=== PATIENT | female | born 1970 | race Caucasian/White ===

== ENCOUNTER 2018-03-20 18:53 | Emergency (ER) | payer SELFPAY ==
[2018-03-20 19:19] VITALS: BMI 26.4
[2018-03-20 19:21] VITALS: TEMP 98.6
--- NOTE | 2018-03-20 20:02 | ED PDOC ---
Arrival/HPI - General Chief Complaint: Abdominal Pain Time Seen by Provider: 03/20/18 19:29 Historian: Patient - History of Present Illness Narrative History of Present Illness (Text): 47 year old female with PMH of PCOS, ovarian cyts, presents with left adnexal and right lower back pain for 6 months duration. patient states the pain is a 6/ 10 and worse after sexual intercourse and while lying down. Patient denies any vaginal, pain with urination, bleeding, ever, chills, chest pain, shortness of breath, or any other complaints at this time. 03/20/18 19:59 Time/Duration: > month Quality: Cramping Severity Level: 6 Past Medical History - Provider Review Nursing Documentation Reviewed: Yes - Infectious Disease Hx of Infectious Diseases: None - Reproductive Menopause: Yes - Cardiac Hx Cardiac Disorders: Yes Other/Comment: Congenital valve regurgitation - Pulmonary Hx Respiratory Disorders: No - Neurological Hx Neurological Disorder: Yes Hx Vertigo: Yes - HEENT Hx HEENT Disorder: No - Renal Hx Renal Disorder: No - Endocrine/Metabolic Hx Endocrine Disorders: No - Hematological/Oncological Hx Blood Disorders: No - Integumentary Hx Dermatological Disorder: No - Musculoskeletal/Rheumatological Hx Musculoskeletal Disorders: No - Gastrointestinal Hx Gastrointestinal Disorders: No - Genitourinary/Gynecological Hx Genitourinary Disorders: No Other/Comment: Endometriosis and PCOS - Psychiatric Hx Psychophysiologic Disorder: No Hx Substance Use: No - Anesthesia Hx Anesthesia: No Family/Social History Family/Social History: No Known Family HX Smoking Status: Never Smoked Hx Alcohol Use: No Hx Substance Use: No Allergies/Home Meds Allergies/Adverse Reactions: Allergies No Known Allergies Allergy (Verified 03/20/18 19:19) Review of Systems - Review of Systems Constitutional: Normal Eyes: Normal ENT: Normal Respiratory: Normal Cardiovascular: Normal Gastrointestinal: Abdominal Pain. absent: Diarrhea Genitourinary Female: Other (pain after sexual intercourse ). absent: Dysuria, Frequency, Hematuria, Urine Output Changes, Vaginal Bleeding, Vaginal Discharge Musculoskeletal: Back Pain Skin: Normal Neurological: Normal Endocrine: Normal Physical Exam Vital Signs Temp Pulse Resp BP Pulse Ox 03/20/18 23:48 69 18 117/72 100 03/20/18 19:20 98.6 F 74 16 104/64 98 Temperature: Afebrile Blood Pressure: Normal Pulse: Regular Respiratory Rate: Normal Appearance: Positive for: Well-Appearing, Non-Toxic, Comfortable Pain Distress: Mild Mental Status: Positive for: Alert and Oriented X 3 - Systems Exam Head: Present: Atraumatic, Normocephalic Pupils: Present: PERRL Extroacular Muscles: Present: EOMI Conjunctiva: Present: Normal Mouth: Present: Moist Mucous Membranes Neck: Present: Normal Range of Motion Respiratory/Chest: Present: Clear to Auscultation Cardiovascular: Present: Regular Rate and Rhythm, Normal S1, S2. No: Murmurs Abdomen: Present: Tenderness Genitourinary/Pelvic Exam: Present: Adenexal Tenderness Upper Extremity: Present: Normal Inspection. No: Edema Lower Extremity: Present: Normal Inspection. No: Edema Neurological: Present: GCS=15, CN II-XII Intact Skin: Present: Warm, Dry Psychiatric: Present: Alert, Oriented x 3 Medical Decision Making ED Course and Treatment: Plan -Urinalysis, CBC, TVUS -reasses 03/20/18 20:01 - Lab Interpretations Lab Results: 03/20/18 20:10 03/20/18 20:10 Lab Results 03/20/18 20:10: Sodium 144, Potassium 4.0, Chloride 106, Carbon Dioxide 26, Anion Gap 16, BUN 13, Creatinine 0.6 L, Est GFR ( Amer) > 60, Est GFR ( Non-Af Amer) > 60, Random Glucose 92, Calcium 9.2, Magnesium 2.2, Total Bilirubin 0.2, AST 26, ALT 24, Alkaline Phosphatase 53, Total Protein 7.9, Albumin 4.4, Globulin 3.5, Albumin/Globulin Ratio 1.2, Lipase 60 03/20/18 20:10: Urine Color Yellow, Urine Appearance Clear, Urine pH 6.5, Ur Specific [place] 1.015, Urine Protein Negative, Urine Glucose (UA) Negative, Urine Ketones Negative, Urine Blood Negative, Urine Nitrate Negative, Urine Bilirubin Negative, Urine Urobilinogen 0.2, Ur Leukocyte Esterase Trace H, Urine RBC 0 - 2, Urine WBC 2 - 5, Ur Epithelial Cells 4 - 5, Urine Bacteria Many , Urine HCG, Qual Negative 03/20/18 20:10: PT 11.0, INR 0.97, APTT 39.0 H 03/20/18 20:10: WBC 6.9 D, RBC 4.36, Hgb 13.0, Hct 37.7, MCV 86.5, MCH 29.8, MCHC 34.5, RDW 13.4, Plt Count 301, MPV 9.9, Gran % 49.1 L, Lymph % (Auto) 40.7 H, [place] % (Auto) 6.9 H, Eos % (Auto) 2.6, Baso % (Auto) 0.7, Gran # 3.39, Lymph # (Auto) 2.8, [place] # (Auto) 0.5, Eos # (Auto) 0.2, Baso # (Auto) 0.05 I have reviewed the lab results: Yes - RAD Interpretation Radiology Orders: 03/20/18 19:55 TRANSVAGINAL [US] Stat - Medication Orders Current Medication Orders: Discontinued Medications Acetaminophen (Tylenol 325mg Tab) 975 mg PO STAT STA Stop: 03/20/18 19:56 Last Admin: 03/20/18 20:11 Dose: 975 mg Disposition/Present on Arrival - Present on Arrival Any Indicators Present on Arrival: No History of DVT/PE: No History of Uncontrolled Diabetes: No Urinary Catheter: No History of Decub. Ulcer: No History Surgical Site Infection Following: None - Disposition Have Diagnosis and Disposition been Completed?: Yes Diagnosis: Abdominal pain, Fibroid, Ovarian cyst Disposition: HOME/ ROUTINE Disposition Time: 01:00 Condition: STABLE Discharge Instructions (ExitCare): Ovarian Cysts, Uterine Fibroids, Acute Abdomen (Belly Pain) Additional Instructions: return to emergency room with worsening symptoms or concerns. please follow up obgyn and your doctor. Referrals: Magan Renee MD [Staff Provider] - Follow up with primary Andre Engel MD [Staff Provider] - Follow up with primary Forms: [employer] (Danish)
[2018-03-20 20:24] LABS: BASO # 0.05 K/mm3 (0.0-2.0); BASO % 0.7 % (0.0-3.0); EOS # 0.2 (0.0-0.7); EOS % 2.6 % (1.5-5.0); GRAN # 3.39 (1.4-6.5); GRAN % 49.1 % (50.0-68.0); LYMPH # 2.8 (1.2-3.4); LYMPH % 40.7 % (22.0-35.0); MEAN CELL VOLUME 86.5 fl (80.0-105.0); MEAN CORPUSCULAR HEMOGLOBIN 29.8 pg (25.0-35.0); MEAN CORPUSCULAR HGB CONC 34.5 g/dl (31.0-37.0); MEAN PLATELET VOLUME 9.9 fl (7.0-11.0); MONO # 0.5 (0.1-0.6); MONO % 6.9 % (1.0-6.0); RBC 4.36 10^6/uL (3.5-6.1); RED CELL DISTRIBUTION WIDTH 13.4 % (11.5-14.5); WHITE BLOOD COUNT 6.9 10^3/ul (4.5-11.0)
[2018-03-20 20:25] LABS: PH,URINE 6.5 (4.7-8.0); URINE APPEARANCE CLEAR (CLEAR); URINE BILIRUBIN NEGATIVE (NEGATIVE); URINE BLOOD NEGATIVE (NEGATIVE); URINE COLOR YELLOW (YELLOW); URINE GLUCOSE (UA) NEGATIVE (NEGATIVE); URINE LEUKOCYTE ESTERASE TRACE Leu/uL (NEGATIVE); URINE PROTEIN NEGATIVE mg/dL (<30 mg/dL); URINE UROBILINOGEN 0.2 E.U./dL (<1 E.U./dL)
[2018-03-20 20:29] LABS: HCG,QUALITATIVE URINE NEGATIVE (NEGATIVE)
[2018-03-20 20:33] LABS: URINE BACTERIA MANY (NEG); URINE RBC 0 - 2 /hpf (0-2)
[2018-03-20 20:35] LABS: INR 0.97 (0.93-1.08)
[2018-03-20 20:36] LABS: ALB/GLOB RATIO 1.2 (1.1-1.8); ALBUMIN 4.4 g/dL (3.0-4.8); ALT/SGPT 24 U/L (7-56); AST/SGOT 26 U/L (14-36); BLOOD UREA NITROGEN 13 mg/dL (7-21); CALCIUM 9.2 mg/dL (8.4-10.5); GFR AFRICAN-AMERICAN > 60; GFR NON-AFRICAN AMERICAN > 60; LIPASE 60 U/L (23-300)
[2018-03-20 23:49] VITALS: BP 117/72; PULSE 69; RESP 18; O2SAT 100
--- NOTE | 2018-03-21 09:35 | CARD ---
APPROVED REPORT EKG Measurement Heart [id number] <Conclusion> Normal sinus rhythm Normal ECG
--- NOTE | 2018-03-21 11:35 | US ---
PROCEDURE: HISTORY: left sided pelvic pain COMPARISON: TECHNIQUE: FINDINGS: The uterus measures 8 point sub by 4.6 x 5.8 centimeters. There is there is a fibroid present measuring 6.7 centimeters. The left ovary is not visualized. The right ovary measures 5.9 x 4.7 x 6.7 centimeter and contains a complex cyst measuring up to 6.7 centimeters with internal debris likely representing hemorrhagic cyst. There is no free from the pelvis. IMPRESSION: Complex right ovarian cyst with internal debris prior representing a hemorrhagic cyst measuring 6.7 centimeters. Leiomyomatous uterus.
== END 2018-03-20 23:48 | disposition home or self-care (01) ==
LOC: ED 18:53
DX: D25.9 Leiomyoma of uterus, unspecified (principal); N83.201 Unspecified ovarian cyst, right side; R10.9 Unspecified abdominal pain

== ENCOUNTER 2018-05-13 13:56 | Observation (INO) | payer MEDICAID, OTHER ==
[2018-05-13] MEDS ORDERED: Sodium Chloride 0.9% 1,000 ML IV STA (14:42)
[2018-05-13 15:04] LABS: URINE BILIRUBIN NEGATIVE (NEGATIVE); URINE BLOOD TRACE-INTACT (NEGATIVE); URINE GLUCOSE (UA) NEGATIVE (NEGATIVE); URINE LEUKOCYTE ESTERASE TRACE Leu/uL (NEGATIVE); URINE PROTEIN TRACE mg/dL (<30 mg/dL); URINE UROBILINOGEN 0.2 E.U./dL (<1 E.U./dL)
[2018-05-13 15:24] LABS: URINE APPEARANCE CLEAR (CLEAR); URINE COLOR LIGHT YELLOW (YELLOW)
--- NOTE | 2018-05-13 15:25 | ED PDOC ---
Arrival/HPI - General Chief Complaint: Female Genitourinary Time Seen by Provider: 05/13/18 14:01 Historian: Patient - History of Present Illness Narrative History of Present Illness (Text): 05/13/18 15:09 47yr old female presents today with a 3 day history of vaginal itch and dysuria and fevers. pt states 3 days ago she noticed some vaginal itch and burning and started taking monistat. pt states that she developed dysuria as well. she states she has hx of chronic constipation and noticed bright red blood after defecation today now with rectal pain. pt states she developed fevers and headache. pt c/o of minimal lower abdominal pain. denies back pain. denies cp or sob. pt denies vaginal bleeding. no uri symptoms. pt denies sore throat. Past Medical History - Provider Review Nursing Documentation Reviewed: Yes - Travel History Have you recently traveled outside [place] w/in the past 3 mons?: No - Infectious Disease Hx of Infectious Diseases: None - Reproductive Menopause: Yes - Cardiac Hx Cardiac Disorders: Yes Other/Comment: Congenital valve regurgitation - Pulmonary Hx Respiratory Disorders: No - Neurological Hx Neurological Disorder: Yes Hx Vertigo: Yes - HEENT Hx HEENT Disorder: No - Renal Hx Renal Disorder: No - Endocrine/Metabolic Hx Endocrine Disorders: No - Hematological/Oncological Hx Blood Disorders: No - Integumentary Hx Dermatological Disorder: No - Musculoskeletal/Rheumatological Hx Musculoskeletal Disorders: No - Gastrointestinal Hx Gastrointestinal Disorders: No Hx Constipation: Yes - Genitourinary/Gynecological Hx Genitourinary Disorders: No Other/Comment: Endometriosis and PCOS - Psychiatric Hx Psychophysiologic Disorder: No Hx Substance Use: No - Anesthesia Hx Anesthesia: No Family/Social History - Physician Review Nursing Documentation Reviewed: Yes Family/Social History: Unknown Family HX Smoking Status: Never Smoked Hx Alcohol Use: No Hx Substance Use: No Allergies/Home Meds Allergies/Adverse Reactions: Allergies No Known Allergies Allergy (Verified 03/20/18 19:19) Home Medications: Home Meds Medication Instructions Recorded Confirmed Miconazole Nitrate [Monistat 3] 1 each VG 05/13/18 Review of Systems - Review of Systems Constitutional: Fevers. absent: Fatigue ENT: absent: Sore Throat, Sinus Congestion Respiratory: absent: SOB, Cough Cardiovascular: absent: Chest Pain, Palpitations Gastrointestinal: Abdominal Pain. absent: Constipation, Diarrhea, Nausea, Vomiting Genitourinary Female: Dysuria. absent: Frequency, Hematuria, Urine Output Changes, Vaginal Bleeding, Vaginal Discharge Musculoskeletal: absent: Arthralgias, Back Pain, Neck Pain Skin: Pruritis. absent: Rash Neurological: Headache. absent: Dizziness Psychiatric: absent: Anxiety, Depression, Suicidal Ideation Physical Exam Vital Signs Reviewed: Yes Vital Signs Temp Pulse Resp BP Pulse Ox 05/13/18 20:38 86 16 126/78 100 05/13/18 20:34 98.2 F 96 H 18 112/69 05/13/18 19:13 98.2 F 96 H 18 112/69 100 05/13/18 18:28 98.2 F 99 H 18 121/82 100 05/13/18 16:11 98.8 F 105 H 18 120/79 99 05/13/18 14:06 103.1 F H 117 H 18 118/77 98 Temperature: Febrile Blood Pressure: Normal Pulse: Tachycardic Respiratory Rate: Normal Appearance: Positive for: Well-Appearing, Non-Toxic, Comfortable Pain Distress: None Mental Status: Positive for: Alert and Oriented X 3 - Systems Exam Head: Present: Atraumatic Mouth: Present: Moist Mucous Membranes Neck: Present: Normal Range of Motion Respiratory/Chest: Present: Clear to Auscultation, Good Air Exchange. No: Respiratory Distress, Accessory Muscle Use Cardiovascular: Present: Regular Rate and Rhythm, Normal S1, S2. No: Murmurs Abdomen: Present: Tenderness (minimal lower abdominal tenderness). No: Distention, Peritoneal Signs, Rebound, Guarding Genitourinary/Pelvic Exam: Present: Normal External Genitalia, Other ( chaparoned by Natividad Renee; pt refused digital examination). No: Vaginal Discharge , Vaginal Bleeding, Vaginal Lesions, Adenexal Tenderness, Adenexal Mass, Cervical Motion Tendernes Back: Present: Normal Inspection. No: CVA Tenderness, Midline Tenderness, Paraspinal Tenderness Upper Extremity: Present: Normal Inspection Lower Extremity: Present: Normal Inspection, Normal ROM. No: CALF TENDERNESS Neurological: Present: GCS=15, Speech Normal Skin: Present: Warm, Dry, Normal Color. No: Rashes Psychiatric: Present: Alert, Oriented x 3 Medical Decision Making ED Course and Treatment: 05/13/18 15:46 Patient is nontoxic well appearing with stable vital signs presenting with fever , abdominal pain, urinary symptoms x 3 days. toradol IV tylenol PO NS iv bolus given. lactate; 1.1 CBC wnl CMP wnl Lipase wnl Urinalysis trace leukocytes CAT scan abd/pelvis: FINDINGS: LOWER THORAX: Mild passive/dependent type atelectasis both posterior lower lung tavarez. No focal consolidation. No effusion or basilar pneumothorax. Heart size within range of normal. No significant pericardial effusion. LIVER: Liver is upper limits of normal measuring approximately 18 cm in CC dimension. . Minimal diffuse fatty hepatic infiltration. Portal and splenic veins are opacified. GALLBLADDER AND BILE DUCTS: Gallbladder physiologically distended. No evidence of intraluminal gallbladder calculi. PANCREAS: Unremarkable. No gross lesion or ductal dilatation. SPLEEN: Spleen exhibits normal size and attenuation pattern without mass collection or calcification. ADRENALS: No adrenal masses. KIDNEYS AND URETERS: Kidneys that demonstrate relatively symmetric size. No evidence of nephrolithiasis or hydronephrosis. . VASCULATURE: Unremarkable. No aortic aneurysm. BOWEL: Evaluation of the bowel slightly limited due to the lack of oral contrast material. The stomach is thick-walled in appearance in part due to incomplete distention however gastritis or other intrinsic/invasive wall lesion not excluded. Clinical correlation recommended. Visualized loops of small bowel exhibit normal contour and caliber. No evidence of acute mechanical small bowel obstruction. The stool and air are seen throughout the cecum at ascending and to a lesser degree transverse colon. Most of the remaining colon is relatively collapsed. No definitive evidence of abnormal mural wall thickening. . There are a few scattered colonic diverticula seen along the descending colon. No definite evidence of acute diverticulitis. APPENDIX: The appendix is not seen with complete certainty as there are several of nondistended fluid-filled loops of small bowel in the right lower quadrant of the abdomen. No obvious inflammatory changes right lower quadrant of the abdomen to suggest acute appendicitis. Clinical correlation and close observation recommended. Repeat CT scan could be performed if clinical picture changes. PERITONEUM: Unremarkable. No free fluid. No free air. Small fat containing umbilical hernia. LYMPH NODES: Unremarkable. No enlarged lymph nodes. BLADDER: Unremarkable. REPRODUCTIVE: Uterus is somewhat prominent lobulated and heterogeneous consistent with uterine fibroids. . There is a large complex appearing right adnexal cyst that measures approximately 4.5 x 3.4 cm. Questionable left adnexal cyst versus degenerating exophytic/serosal surface of fibroid arising from the left superior frontal region. . BONES: No acute compression fractures nor retropulsed fragments. Vertebral bodies exhibit normal stature. There is straightening of the normal lumbar lordosis. OTHER FINDINGS: None. IMPRESSION: Large complex appearing right adnexal cyst. Heterogeneous fibroid uterus. Questionable small left adnexal cyst versus exophytic/serosal surface left fundal fibroid. The appendix is not seen with complete certainty however no obvious inflammatory changes right lower quadrant of the abdomen to suggest acute appendicitis. . Clinical correlation recommended. Few scattered colonic diverticula seen along the descending colon however no radiographic evidence of acute diverticulitis. US; FINDINGS: Uterus/cervix: The uterus is anteverted and normal in size, measuring 9.1 x 4.8 x 5.5 cm. A 3.6 x 2.5 x 3.4 cm posterior fundal intramural leiomyoma has not substantially changed accounting for differences in technique. Normal endometrial stripe thickness. Right ovary: A 6.0 x 3.2 x 2.9 cm right adnexal cyst containing a network of internal echoes has decreased from 3.9 x 6.3 x 3.3 cm fat in prior exam. The right ovary is not visualized. Left ovary: In the left ovary is normal in size and morphology, measuring 2.7 x 1.4 x 2.2 cm. Normal blood flow. Free fluid: No free fluid. IMPRESSION: Right adnexal hemorrhagic corpus luteum cyst versus endometrioma not substantially changed since 03/17 MRI correlation may be considered for characterization. Uterine leiomyoma not substantially changed. Patient reassessment: Pt is non toxic well appearing; vitals stable. feeling better. no distress. vitals improved. Discussed all results with patient in depth case discussed with dr. Patrick comer; accepts observational status admission for fever with abdominal pain without visualization of appendix blood cultures and urine cultures pending. rocephin started IV for possible uTI. case discussed with surgical clinical reviewer who will evaluate patient at bedside. Impression: Abdominal pain, fever admit observational status - Lab Interpretations Lab Results: 05/13/18 15:10 05/13/18 15:10 Lab Results 05/13/18 15:10: pO2 26 L, VBG pH 7.38, VBG pCO2 47.0, VBG HCO3 27.8, VBG Total CO2 29.2 H, VBG O2 Sat (Calc) 52.6, VBG Base Excess 2.0, VBG Potassium 4.1, Sodium 138.0, Chloride 103.0, Glucose 124 H, Lactate 1.1, FiO2 21.0, Venous Blood Potassium 4.1 05/13/18 15:10: WBC 5.8, RBC 4.61, Hgb 13.7, Hct 39.9, MCV 86.6, MCH 29.7, MCHC 34.3, RDW 13.3, Plt Count 244, MPV 9.4, Gran % 76.5 H, Lymph % (Auto) 12.3 L, [place] % (Auto) 9.8 H, Eos % (Auto) 0.9 L, Baso % (Auto) 0.5, Gran # 4.46, Lymph # (Auto) 0.7 L, [place] # (Auto) 0.6, Eos # (Auto) 0.1, Baso # (Auto) 0.03 05/13/18 15:10: Sodium 141, Chloride 103, Potassium 4.5, Carbon Dioxide 26, Anion Gap 18, BUN 7, Creatinine 0.7, Est GFR ( Amer) > 60, Est GFR (Non- Af Amer) > 60, Random Glucose 124 H, Calcium 9.1, Total Bilirubin 0.3, AST 24, ALT 33, Alkaline Phosphatase 60, Total Protein 7.9, Albumin 4.4, Globulin 3.5, Albumin/Globulin Ratio 1.2, Lipase 33 05/13/18 14:38: Urine Color Light yellow, Urine Appearance Clear, Urine pH 6.0, Ur Specific [place] 1.020, Urine Protein Trace H, Urine Glucose (UA) Negative, Urine Ketones Negative, Urine Blood Trace-intact H, Urine Nitrate Negative, Urine Bilirubin Negative, Urine Urobilinogen 0.2, Ur Leukocyte Esterase Trace H , Urine RBC 0 - 2, Urine WBC 0 - 2, Ur Epithelial Cells 0 - 2, Urine Bacteria Small - RAD Interpretation Radiology Orders: 05/13/18 15:25 ABD & PELVIS IV CONTRAST ONLY [CT] Stat 05/13/18 17:24 TRANSVAGINAL [US] Stat - Medication Orders Current Medication Orders: Discontinued Medications Acetaminophen (Tylenol 325mg Tab) 975 mg PO STAT STA Stop: 05/13/18 14:43 Last Admin: 05/13/18 15:24 Dose: 975 mg MAR Pain/Vitals Document 05/13/18 15:24 SF (Rec: 05/13/18 15:24 SF [email or web address]) Pain Reassessment Is This A Pain ReAssessment? Yes Sleep Is patient sleeping during reassessment? No Presence of Pain Presence of Pain Yes Sodium Chloride (Sodium Chloride 0.9%) 1,000 mls @ 999 mls/hr IV .Q1H1M STA Stop: 05/13/18 15:42 Last Admin: 05/13/18 15:21 Dose: 999 mls/hr eMAR Start Stop Document 05/13/18 15:21 SF (Rec: 05/13/18 15:21 SF [id number]) Intravenous Solution Start Date 05/13/18 Start Time 15:21 End Date 05/13/18 End time 16:22 Total Infusion Time 61 Ceftriaxone Sodium (Rocephin 1 Gram Ivpb) 1 gm in 100 mls @ 200 mls/hr IVPB STAT STA PRN Reason: Protocol Stop: 05/13/18 20:28 Last Admin: 05/13/18 20:42 Dose: 200 mls/hr eMAR Start Stop Document 05/13/18 20:42 SF (Rec: 05/13/18 20:42 SF [id number]) Intravenous Solution Start Date 05/13/18 Start Time 20:42 End Date 05/13/18 End time 21:15 Total Infusion Time 33 Ketorolac Tromethamine (Toradol) 30 mg IVP STAT STA Stop: 05/13/18 14:43 Last Admin: 05/13/18 15:24 Dose: 30 mg MAR Pain Assessment Document 05/13/18 15:24 SF (Rec: 05/13/18 15:24 SF [id number]) Pain Reassessment Is this a pain reassessment? Yes Sleep Is patient sleeping during reassessment? No Presence of Pain Presence of Pain Yes IVP Administration Document 05/13/18 15:24 SF (Rec: 05/13/18 15:24 SF [id number]) Charges for Administration # of IVP Administrations 1 Disposition/Present on Arrival - Present on Arrival Any Indicators Present on Arrival: No History of DVT/PE: No History of Uncontrolled Diabetes: No Urinary Catheter: No History of Decub. Ulcer: No History Surgical Site Infection Following: None - Disposition Have Diagnosis and Disposition been Completed?: Yes Diagnosis: Abdominal pain, Fever, Ovarian cyst Disposition: HOSPITALIZED Disposition Time: 20:00 Patient Plan: Observation Patient Problems: Current Active Problems Problem Status Onset Abdominal pain Acute Fever Acute Ovarian cyst Acute Condition: FAIR
[2018-05-13 15:36] LABS: VENOUS BLOOD GAS PO2 26 mm/Hg (30-55); VENOUS BLOOD PH 7.38 (7.32-7.43)
[2018-05-13 15:41] LABS: ALB/GLOB RATIO 1.2 (1.1-1.8); ALBUMIN 4.4 g/dL (3.0-4.8); ALT/SGPT 33 U/L (7-56); AST/SGOT 24 U/L (14-36); BLOOD UREA NITROGEN 7 mg/dL (7-21); CALCIUM 9.1 mg/dL (8.4-10.5); GFR AFRICAN-AMERICAN > 60; GFR NON-AFRICAN AMERICAN > 60
[2018-05-13 15:45] LABS: BASO # 0.03 K/mm3 (0.0-2.0); BASO % 0.5 % (0.0-3.0); EOS # 0.1 (0.0-0.7); EOS % 0.9 % (1.5-5.0); GRAN # 4.46 (1.4-6.5); GRAN % 76.5 % (50.0-68.0); HEMOGLOBIN 13.7 g/dL (12.0-16.0); LYMPH # 0.7 (1.2-3.4); LYMPH % 12.3 % (22.0-35.0); MEAN CELL VOLUME 86.6 fl (80.0-105.0); MEAN CORPUSCULAR HEMOGLOBIN 29.7 pg (25.0-35.0); MEAN CORPUSCULAR HGB CONC 34.3 g/dl (31.0-37.0); MEAN PLATELET VOLUME 9.4 fl (7.0-11.0); MONO # 0.6 (0.1-0.6); MONO % 9.8 % (1.0-6.0); RBC 4.61 10^6/uL (3.5-6.1); RED CELL DISTRIBUTION WIDTH 13.3 % (11.5-14.5); WHITE BLOOD COUNT 5.8 10^3/ul (4.5-11.0)
[2018-05-13 15:45] LABS: URINE EPITHELIAL CELLS 0 - 2 /hpf (0-5); URINE RBC 0 - 2 /hpf (0-2); URINE WBC 0 - 2 /hpf (0-6)
[2018-05-13 15:46] LABS: URINE BACTERIA SMALL (NEG)
[2018-05-13 15:57] LABS: LIPASE 33 U/L (23-300)
[2018-05-13] MEDS ORDERED: Iohexol 350 MG/100 ML VIAL ONE (16:14)
--- NOTE | 2018-05-13 17:23 | CT ---
Date of service: 05/13/2018 PROCEDURE: CT Abdomen and Pelvis with contrast HISTORY: Lower abdominal pain/fever COMPARISON: No prior study available comparison however correlation made with pelvic ultrasound 03/20/2018. TECHNIQUE: Contiguous helical/ transaxial sections of the abdomen pelvis performed following intravenous injection of approximately 100 cc Omnipaque 350 contrast material. Additional 2D sagittal and coronal reformats generated. Radiation dose: Total exam DLP = 246.95 mGy-cm. This CT exam was performed using one or more of the following dose reduction techniques: Automated exposure control, adjustment of the mA and/or kV according to patient size, and/or use of iterative reconstruction technique. . FINDINGS: LOWER THORAX: Mild passive/dependent type atelectasis both posterior lower lung tavarez. No focal consolidation. No effusion or basilar pneumothorax. Heart size within range of normal. No significant pericardial effusion. LIVER: Liver is upper limits of normal measuring approximately 18 cm in CC dimension. . Minimal diffuse fatty hepatic infiltration. Portal and splenic veins are opacified. GALLBLADDER AND BILE DUCTS: Gallbladder physiologically distended. No evidence of intraluminal gallbladder calculi. PANCREAS: Unremarkable. No gross lesion or ductal dilatation. SPLEEN: Spleen exhibits normal size and attenuation pattern without mass collection or calcification. ADRENALS: No adrenal masses. KIDNEYS AND URETERS: Kidneys that demonstrate relatively symmetric size. No evidence of nephrolithiasis or hydronephrosis. . VASCULATURE: Unremarkable. No aortic aneurysm. BOWEL: Evaluation of the bowel slightly limited due to the lack of oral contrast material. The stomach is thick-walled in appearance in part due to incomplete distention however gastritis or other intrinsic/invasive wall lesion not excluded. Clinical correlation recommended. Visualized loops of small bowel exhibit normal contour and caliber. No evidence of acute mechanical small bowel obstruction. The stool and air are seen throughout the cecum at ascending and to a lesser degree transverse colon. Most of the remaining colon is relatively collapsed. No definitive evidence of abnormal mural wall thickening. . There are a few scattered colonic diverticula seen along the descending colon. No definite evidence of acute diverticulitis. APPENDIX: The appendix is not seen with complete certainty as there are several of nondistended fluid-filled loops of small bowel in the right lower quadrant of the abdomen. No obvious inflammatory changes right lower quadrant of the abdomen to suggest acute appendicitis. Clinical correlation and close observation recommended. Repeat CT scan could be performed if clinical picture changes. PERITONEUM: Unremarkable. No free fluid. No free air. Small fat containing umbilical hernia. LYMPH NODES: Unremarkable. No enlarged lymph nodes. BLADDER: Unremarkable. REPRODUCTIVE: Uterus is somewhat prominent lobulated and heterogeneous consistent with uterine fibroids. . There is a large complex appearing right adnexal cyst that measures approximately 4.5 x 3.4 cm. Questionable left adnexal cyst versus degenerating exophytic/serosal surface of fibroid arising from the left superior frontal region. . BONES: No acute compression fractures nor retropulsed fragments. Vertebral bodies exhibit normal stature. There is straightening of the normal lumbar lordosis. OTHER FINDINGS: None. IMPRESSION: Large complex appearing right adnexal cyst. Heterogeneous fibroid uterus. Questionable small left adnexal cyst versus exophytic/serosal surface left fundal fibroid. The appendix is not seen with complete certainty however no obvious inflammatory changes right lower quadrant of the abdomen to suggest acute appendicitis. . Clinical correlation recommended. Few scattered colonic diverticula seen along the descending colon however no radiographic evidence of acute diverticulitis. These findings were discussed with emergency room physician assistant Arenas at 5:20 p.m. with written down and read back verification.
[2018-05-13] MEDS ORDERED: cefTRIAXone 1 gm 1 GM/100 ML BAG IVPB STA (19:59)
[2018-05-13 20:41] VITALS: BMI 25.9
--- NOTE | 2018-05-13 21:18 | CP.PCM.CON ---
<Eloy Brown - Last Filed: 05/14/18 08:24> History of Present Illness - History of Present Illness History of Present Illness: General Surgery Consult Note for Dr. Pratik Valderrama 47F, with past medical history of left adnexal cyst, fibroids, chronic constipation and hemorrhoids, came into the ER today for fevers with a Tmax of 103. Consulted for bleeding hemorrhoid. Patient was seen and evaluated in the ER. Today, she had a bowel movement and subsequently noticed a few drops of bright red blood in the toilet. She had some discomfort around the rectum initially which has now resolved. She has not had any additional episodes of bleeding. After a bowel movement she does occasionally feel the hemorrhoid prolapse and she is able to reduce it. She is not experiencing any pain in the abdomen, pelvis, or rectum. She has had hemmorhoids since she was 21 years old. Today she started having fevers for which Tylenol and Ibuprofen helped; however , they did not resolve the symptoms which subsequently brought her to the ER. She admits to burning with urination. She admits to chills. Denies anal pruritis , tenesmus, rectal bleeding, rectal pain, nausea, vomiting, diarrhea, urinary discharge, vaginal bleeding, abdominal or pelvic pain, shortness of breath, cough, chest pain, palpitations. PMH: see above PSH: D&C FH: Maternal-leukemia, Paternal-Lung cancer ALL: NKDA Soc: Denies tobacco, alcohol, drugs Review of Systems - Constitutional Constitutional: Chills, Fever. absent: Weight Loss - EENT Eyes: absent: Blurred Vision, Change in Vision Ears: absent: Ear Discharge, Ear Pain Nose/Mouth/Throat: absent: Nasal Congestion, Nasal Discharge - Cardiovascular Cardiovascular: absent: Chest Pain, Dyspnea - Respiratory Respiratory: absent: Cough, Dyspnea - Gastrointestinal Gastrointestinal: absent: Abdominal Pain, Nausea, Vomiting - Genitourinary Genitourinary: absent: Dysuria, Hematuria, Pyuria - Musculoskeletal Musculoskeletal: absent: Back Pain, Neck Pain - Integumentary Integumentary: absent: Bleeding Lesions, Changing Lesions - Neurological Neurological: absent: Confusion, Dizziness - Psychiatric Psychiatric: absent: Anxiety, Depression Past Patient History - Infectious Disease Hx of Infectious Diseases: None - Past Social History Smoking Status: Never Smoked - CARDIAC Hx Cardiac Disorders: Yes Other/Comment: Congenital valve regurgitation - PULMONARY Hx Respiratory Disorders: No - NEUROLOGICAL Hx Neurological Disorder: Yes Hx Vertigo: Yes - HEENT Hx HEENT Problems: No - RENAL Hx Chronic Kidney Disease: No - ENDOCRINE/METABOLIC Hx Endocrine Disorders: No - HEMATOLOGICAL/ONCOLOGICAL Hx Blood Disorders: No - INTEGUMENTARY Hx Dermatological Problems: No - MUSCULOSKELETAL/RHEUMATOLOGICAL Hx Musculoskeletal Disorders: No - GASTROINTESTINAL Hx Gastrointestinal Disorders: No Hx Constipation: Yes - GENITOURINARY/GYNECOLOGICAL Hx Genitourinary Disorders: No Other/Comment: Endometriosis and PCOS - PSYCHIATRIC Hx Psychophysiologic Disorder: No Hx Substance Use: No - SURGICAL HISTORY Hx Surgeries: No - ANESTHESIA Hx Anesthesia: No Meds Allergies/Adverse Reactions: Allergies Allergy/AdvReac Type Severity Reaction Status Date / Time No Known Allergies Allergy Verified 03/20/18 19:19 - Medications Medications: Current Medications Sodium Chloride (Sodium Chloride 0.9%) 1,000 mls @ 100 mls/hr IV .Q10H [facility] Physical Exam - Constitutional Appears: Well, Non-toxic, No Acute Distress - Head Exam Head Exam: ATRAUMATIC, NORMAL INSPECTION, NORMOCEPHALIC - Eye Exam Eye Exam: EOMI, Normal appearance, PERRL - Respiratory Exam Respiratory Exam: Clear to Auscultation Bilateral, NORMAL BREATHING PATTERN - Cardiovascular Exam Cardiovascular Exam: REGULAR RHYTHM, +S1, +S2. absent: Systolic Murmur - GI/Abdominal Exam GI & Abdominal Exam: Normal Bowel Sounds, Soft. absent: Guarding, Rebound, Tenderness - Rectal Exam Rectal Exam: Hemorrhoids Additional comments: No acute bleeding noted - Back Exam Back exam: absent: CVA tenderness (L), CVA tenderness (R) - Neurological Exam Neurological exam: Alert, Oriented x3 - Psychiatric Exam Psychiatric exam: Normal Affect, Normal Mood - Skin Skin Exam: Dry, Intact, Normal Color, Warm Results - Vital Signs Recent Vital Signs: Last Vital Signs Temp 98.2 F 05/13/18 20:34 Pulse 86 05/13/18 20:38 Resp 16 05/13/18 20:38 BP 126/78 05/13/18 20:38 Pulse Ox 100 05/13/18 21:05 - Labs Result Diagrams: 05/14/18 06:15 05/14/18 06:15 Assessment & Plan - Assessment and Plan (Free Text) Assessment: 47F w/ fevers and internal and external hemorrhoids admitted for observation Plan: - Fever likely secondary to a urinary tract infection with trace leukocyte esterase found in U/A - Patient currently afebrile with no leukocytosis and stable vitals - No active bleeding - Continue management per medical team - Patient will follow up with GI as an outpatient for further management - No surgical intervention at this present time Eloy Brown PGY1 <[email or web address] tompkins - Last Filed: 05/15/18 19:59> Results - Vital Signs Recent Vital Signs: Last Vital Signs Temp 97.8 F 05/15/18 14:00 Pulse 73 05/15/18 14:00 Resp 18 05/15/18 14:00 BP 107/65 05/15/18 14:00 Pulse Ox 97 05/15/18 14:00 - Labs Result Diagrams: 05/15/18 06:20 05/15/18 06:20 Labs: Laboratory Results - last 24 hr 05/14/18 05/15/18 05/15/18 05:00 06:20 06:20 WBC 4.5 RBC 3.81 Hgb 11.1 L Hct 33.0 L MCV 86.6 MCH 29.1 MCHC 33.6 RDW 13.3 Plt Count 219 MPV 9.4 Gran % 42.9 L Lymph % (Auto) 38.4 H Ballard % (Auto) 11.6 H Eos % (Auto) 6.2 H Baso % (Auto) 0.9 Gran # 1.93 Lymph # (Auto) 1.7 Ballard # (Auto) 0.5 Eos # (Auto) 0.3 Baso # (Auto) 0.04 Sodium 143 Potassium 3.7 Chloride 107 Carbon Dioxide 26 Anion Gap 14 BUN 10 Creatinine 0.7 Est GFR ( Amer) > 60 Est GFR (Non-Af Amer) > 60 Random Glucose 101 Calcium 8.4 Total Bilirubin 0.1 L AST 21 ALT 26 Alkaline Phosphatase 47 Total Protein 6.6 Albumin 3.5 Globulin 3.1 Albumin/Globulin Ratio 1.2 HIV 1&2 Ag/Ab, 4th Gen Nonreactive Assessment & Plan - Assessment and Plan (Free Text) Plan: Agree with above. Bulk fiber supplement, stool softeners, laxatives and sitz baths PRN.
[2018-05-13] MEDS: Sodium Chloride 0.9% 1,000 ML IV SCH (21:29)
--- NOTE | 2018-05-13 23:10 | CP.PCM.HP ---
<Sal Lloyd - Last Filed: 05/14/18 03:18> History of Present Illness - History of Present Illness History of Present Illness: Sal Lloyd, PGY-1 History and Physical for Hospitalist Service CC: Fever, rectal pain Ms. Vega is a 47 year old Female with a PMHx of unspecified congenital mitral valve regurgitation, fibroids, endometriosis, PCOS, and Fe deficiency anemia who was admitted for 3 days of subjective fevers and abdominal pain. Patient reported a fever of 103 this morning after using the thermometer, but states she has not used a thermometer the previous two days for any objective temperature. Patient reports subjective feelings of warmth, chills, weakness, headaches and diaphoresis. Patient reports chronic constipation, and requires a laxative and prune juice to have a bowel movement. Patient had an episode of flatus that patient reported as painful and had about 2 ounces of bright red blood per rectum. Since then, patient reports rectal pain but no further episodes of hematochezia. Patient is sexually active and monogamous with . Patient reports a cessation of menses at age 40 s/p multiple dilation and curretages that began in 1999. Patient recently had a yeast infection and began a trial of Monistat 3 days ago. Patient reports persistent pain on urination for 3 days, although pain is not as severe. Patient denies chest pain, palpitations, shortness of breath, dizziness, cough, diarrhea, leg pain, leg swelling, easy bruising, recent travel, sick contacts and changes in weight. PMHx: Chronic constipation, unspecified mitral valve disorder, fibroids, endometriosis, PCOS, and Fe deficiency anemia PSHx: D & C's All: NKDA Social: Denies ETOH, IVDU and tobacco. Patient currently taking care of , who is battling stage 4 colon cancer Fam Hx: noncontributory per patient Meds: per MAR NO PMD OBGYN:Dr. Renee Currently without insurance - patient reports return of insurance in July Present on Admission - Present on Admission Any Indicators Present on Admission: No Review of Systems - Review of Systems All systems: reviewed and no additional remarkable complaints except Review of Systems: 12 point ROS completed and negative except as described in HPI. Past Patient History - Infectious Disease Hx of Infectious Diseases: None - Past Social History Smoking Status: Never Smoked - CARDIAC Hx Cardiac Disorders: Yes Other/Comment: Congenital valve regurgitation - PULMONARY Hx Respiratory Disorders: No - NEUROLOGICAL Hx Neurological Disorder: Yes Hx Vertigo: Yes - HEENT Hx HEENT Problems: No - RENAL Hx Chronic Kidney Disease: No - ENDOCRINE/METABOLIC Hx Endocrine Disorders: No - HEMATOLOGICAL/ONCOLOGICAL Hx Blood Disorders: No - INTEGUMENTARY Hx Dermatological Problems: No - MUSCULOSKELETAL/RHEUMATOLOGICAL Hx Musculoskeletal Disorders: No - GASTROINTESTINAL Hx Gastrointestinal Disorders: No Hx Constipation: Yes - GENITOURINARY/GYNECOLOGICAL Hx Genitourinary Disorders: No Other/Comment: Endometriosis and PCOS - PSYCHIATRIC Hx Psychophysiologic Disorder: No Hx Substance Use: No - SURGICAL HISTORY Hx Surgeries: No - ANESTHESIA Hx Anesthesia: No Meds Allergies/Adverse Reactions: Allergies Allergy/AdvReac Type Severity Reaction Status Date / Time No Known Allergies Allergy Verified 03/20/18 19:19 Physical Exam - Constitutional Appears: Well, Non-toxic, No Acute Distress - Head Exam Head Exam: ATRAUMATIC, NORMAL INSPECTION, NORMOCEPHALIC - Eye Exam Eye Exam: EOMI, Normal appearance Pupil Exam: PERRL - ENT Exam ENT Exam: Mucous Membranes Moist, Normal Exam - Neck Exam Neck exam: Positive for: Normal Inspection. Negative for: Lymphadenopathy - Respiratory Exam Respiratory Exam: Clear to Auscultation Bilateral. absent: Rales, Rhonchi, Wheezes - Cardiovascular Exam Cardiovascular Exam: RRR, +S1, +S2 - GI/Abdominal Exam GI & Abdominal Exam: Hyperactive Bowel Sounds, Soft. absent: Tenderness ( throughout abdomen. Negative rovsing's sign) - Rectal Exam Rectal Exam: Hemorrhoids. absent: Black Stool, Bloody Stool, Fecal Impaction Additional comments: External nonbloody tags appreciated. Single internal hemmohoid felt along anterior wall. Good tone. - Extremities Exam Extremities exam: Positive for: normal inspection, pedal pulses present. Negative for: calf tenderness, joint swelling, pedal edema - Back Exam Back exam: absent: CVA tenderness (L), CVA tenderness (R) - Neurological Exam Neurological exam: Alert, Oriented x3 - Psychiatric Exam Psychiatric exam: Normal Affect, Normal Mood - Skin Skin Exam: Dry, Intact, Normal Color, Warm Results - Vital Signs Recent Vital Signs: Last Vital Signs Temp 98.8 F 05/13/18 21:30 Pulse 85 05/13/18 21:30 Resp 18 05/13/18 21:30 BP 108/63 05/13/18 22:00 Pulse Ox 95 05/13/18 21:30 - Labs Result Diagrams: 05/13/18 15:10 05/13/18 15:10 Assessment & Plan - Assessment and Plan (Free Text) Assessment: Assessment: Ms. Vega is a 47 year old Female with a PMHx of congenital mitral valve regurgitation, fibroids, endometriosis, PCOS, and Fe deficiency anemia who was admitted for 3 days of subjective fevers and BRBPR. Plan: Painful Bleeding 2/2 external hemmorhoids vs poor gynecologic hygiene vs proctatitis vs rectal abscess vs endometriosis Rectal exam performed without occult blood or fluctuance. Both external and internal hemmorhoids appreciated Transvaginal U/S: R adnexal hemmorhagic corpus luteum vs endometrioma unchanged since 03/19. Uterine leiomyoma not substantially changed CT abd and Pelvis: Large complex R adnexal cyst with heterogenous fibroid uterus. ? left adnexal cyst vs serosal suface. Appendix not seen clearly. Scattered colonoc diverticula in descending colon without evidence of acute diverticulitis. UA: Positive for trace protein, blood and leukocyte esterase NPO, NS @100 Rocephin 1 and doxy 100 BID f/u urine and blood cx f/u chlamydia/gonorrhea/HIV ID consulted (Dr. Olson) - recommendations appreciated Surgery consulted (Dr. Valderrama) - recommendations appreciated Labs unremarkable for acute drop in Hgb or electrolyte abnormalities. Monitor in AM labs Chronic constipation colace 100 BID continue to monitor GI/DVT PPx: SCD's Protonix 40 IVP Patient seen, case reviewed, and plan discussed with Dr. Ruma Lloyd, PGY-1 <Que Hendrix N - Last Filed: 05/14/18 05:40> Results - Vital Signs Recent Vital Signs: Last Vital Signs Temp 98.8 F 05/13/18 21:30 Pulse 85 05/13/18 21:30 Resp 18 05/13/18 21:30 BP 108/63 05/13/18 22:00 Pulse Ox 95 05/13/18 21:30 - Labs Result Diagrams: 05/13/18 15:10 05/13/18 15:10 Addendum Addendum: 05/14/18 05:28 47 yrs old female with hx of epidermoid cyst in rt adenexal area s/ surgery, endometriosis , hemorrhoids , constipation ,fibroid uterus and mitral valve prolaps.came to the er for c/o subjective fever, x3 days and noted fever of 103 , itching in the vaginal area, started severe rectal pain and after bearing down passed some blood and relief of some pain . pt is being f/u with [facility] as out pt for complicated adenexal cyst.
[2018-05-14] MEDS ORDERED: MICONAZOLE NITRATE VG SCH (00:45)
[2018-05-14] MEDS: Sodium Chloride 0.9% 1,000 ML IV SCH ×2 (06:37→17:59)
[2018-05-14 06:50] LABS: BASO # 0.02 K/mm3 (0.0-2.0); BASO % 0.4 % (0.0-3.0); EOS # 0.1 (0.0-0.7); EOS % 2.7 % (1.5-5.0); GRAN # 2.69 (1.4-6.5); GRAN % 56.5 % (50.0-68.0); LYMPH # 1.3 (1.2-3.4); LYMPH % 26.4 % (22.0-35.0); MEAN CELL VOLUME 86.8 fl (80.0-105.0); MEAN CORPUSCULAR HEMOGLOBIN 29.1 pg (25.0-35.0); MEAN CORPUSCULAR HGB CONC 33.5 g/dl (31.0-37.0); MEAN PLATELET VOLUME 9.5 fl (7.0-11.0); MONO # 0.7 (0.1-0.6); RBC 4.02 10^6/uL (3.5-6.1); RED CELL DISTRIBUTION WIDTH 13.4 % (11.5-14.5); WHITE BLOOD COUNT 4.8 10^3/ul (4.5-11.0)
[2018-05-14 06:58] LABS: HEMOGLOBIN 11.7 g/dL (12.0-16.0)
[2018-05-14 07:13] LABS: ALB/GLOB RATIO 1.1 (1.1-1.8); ALBUMIN 3.6 g/dL (3.0-4.8); ALT/SGPT 30 U/L (7-56); AST/SGOT 19 U/L (14-36); BLOOD UREA NITROGEN 6 mg/dL (7-21); CALCIUM 8.2 mg/dL (8.4-10.5); GFR AFRICAN-AMERICAN > 60; GFR NON-AFRICAN AMERICAN > 60
--- NOTE | 2018-05-14 08:13 | CP.PCM.PN ---
Subjective - Date & Time of Evaluation Date of Evaluation: 05/14/18 Time of Evaluation: 07:45 - Subjective Subjective: Surgery Progress Note for Dr. Valderrama Pt seen and examined at bedside. Denies any acute complaints currently. Reports that burning with urination and vaginal itching have improved since admission. Pt states that she had episode of a few drops of blood in toilet yesterday, admits to chronic history of constipation and hemorrhoids. Denies having an EGD or colonoscopy in the past. No acute events reported overnight. Objective - Vital Signs/Intake and Output Vital Signs (last 24 hours): Temp Pulse Resp BP Pulse Ox 98.3 F 91 H 20 106/65 98 05/14/18 06:00 05/14/18 06:00 05/14/18 06:00 05/14/18 06:00 05/14/18 06:00 Intake and Output: 05/14/18 05/14/18 06:59 18:59 Intake Total 1000 Balance 1000 - Medications Medications: Current Medications Docusate Sodium (Colace) 100 mg PO BID [facility] Doxycycline Hyclate (Doryx) 100 mg PO Q12 [facility] PRN Reason: Protocol Last Admin: 05/13/18 21:29 Dose: 100 mg Sodium Chloride (Sodium Chloride 0.9%) 1,000 mls @ 100 mls/hr IV .Q10H [facility] Last Admin: 05/14/18 06:37 Dose: 100 mls/hr Ceftriaxone Sodium (Rocephin 1 Gram Ivpb) 1 gm in 100 mls @ 100 mls/hr IVPB DAILY [facility] PRN Reason: Protocol Non-Formulary Medication (Miconazole Nitrate [Monistat 3]) 1 each VG ONCE [facility] Pantoprazole Sodium (Protonix Inj) 40 mg IVP DAILY [facility] - Labs Labs: 05/14/18 06:15 05/14/18 06:15 - Constitutional Appears: Well, Non-toxic, No Acute Distress - Head Exam Head Exam: ATRAUMATIC, NORMAL INSPECTION - Eye Exam Eye Exam: EOMI, Normal appearance, PERRL - ENT Exam ENT Exam: Mucous Membranes Moist, Normal Oropharynx - Neck Exam Neck Exam: Full ROM, Normal Inspection - Respiratory Exam Respiratory Exam: Clear to Ausculation Bilateral, NORMAL BREATHING PATTERN - Cardiovascular Exam Cardiovascular Exam: REGULAR RHYTHM, +S1, +S2 - GI/Abdominal Exam GI & Abdominal Exam: Soft, Normal Bowel Sounds Additional comments: No CVA tenderness, no suprapubic tenderness to palpation - Rectal Exam Rectal Exam: Hemorrhoids Additional comments: No acute bleeding noted - Extremities Exam Extremities Exam: Full ROM, Normal Capillary Refill, Normal Inspection - Back Exam Back Exam: Full ROM, NORMAL INSPECTION - Neurological Exam Neurological Exam: Alert, Awake, CN II-XII Intact, Oriented x3 - Skin Skin Exam: Dry, Intact, Normal Color, Warm Assessment and Plan - Assessment and Plan (Free Text) Assessment: 47 y o female PMhx L adnexal cyst, fibroids, chronic constipation, with internal and external hemorrhoids. Plan: - Fever likely secondary to UTI, trace leukocyte esterase found in U/a on admission - Patient afebrile, vitals stable, no leukocytosis - No active bleeding currently, continue to monitor H/H - Continue management per medical team - Can follow-up as outpatient for hemorrhoids - Further recommendations per Dr. Lavelle Herman, DO PGY-1
--- NOTE | 2018-05-14 08:52 | CP.PCM.PN ---
<Lexy Amato - Last Filed: 05/14/18 15:34> Subjective - Date & Time of Evaluation Date of Evaluation: 05/14/18 Time of Evaluation: 13:26 - Subjective Subjective: Lexy Amato PGY1 Progress Note for Dr. Bing Valderrama Ms. Vega was examined at bedside this morning. She complained of burning and pain upon urination. She denied any pain with defecation or blood in stool. She reports the vaginal itchiness has subsided. Pt denies any subjective fever, chills, shortness of breath, chest pain, abdominal pain, nausea or vomiting. Objective - Vital Signs/Intake and Output Vital Signs (last 24 hours): Temp Pulse Resp BP Pulse Ox 98.3 F 91 H 20 106/65 98 05/14/18 06:00 05/14/18 06:00 05/14/18 06:00 05/14/18 06:00 05/14/18 06:00 Intake and Output: 05/14/18 05/14/18 06:59 18:59 Intake Total 1000 Balance 1000 - Medications Medications: Current Medications Docusate Sodium (Colace) 100 mg PO BID [facility] Doxycycline Hyclate (Doryx) 100 mg PO Q12 [facility] PRN Reason: Protocol Last Admin: 05/13/18 21:29 Dose: 100 mg Sodium Chloride (Sodium Chloride 0.9%) 1,000 mls @ 100 mls/hr IV .Q10H [facility] Last Admin: 05/14/18 06:37 Dose: 100 mls/hr Ceftriaxone Sodium (Rocephin 1 Gram Ivpb) 1 gm in 100 mls @ 100 mls/hr IVPB DAILY [facility] PRN Reason: Protocol Non-Formulary Medication (Miconazole Nitrate [Monistat 3]) 1 each VG ONCE [facility] Pantoprazole Sodium (Protonix Inj) 40 mg IVP DAILY [facility] - Labs Labs: 05/14/18 06:15 05/14/18 06:15 - Constitutional Appears: Well, No Acute Distress - Head Exam Head Exam: ATRAUMATIC, NORMOCEPHALIC - Eye Exam Eye Exam: EOMI, PERRL Pupil Exam: NORMAL ACCOMODATION - ENT Exam ENT Exam: Mucous Membranes Moist - Respiratory Exam Respiratory Exam: Clear to Ausculation Bilateral, NORMAL BREATHING PATTERN - Cardiovascular Exam Cardiovascular Exam: REGULAR RHYTHM, +S1, +S2 - GI/Abdominal Exam GI & Abdominal Exam: Soft, Normal Bowel Sounds. absent: Distended, Tenderness Additional comments: no suprapubic tenderness - Extremities Exam Extremities Exam: Normal Inspection. absent: Pedal Edema - Neurological Exam Neurological Exam: Alert, Awake, Oriented x3 - Psychiatric Exam Psychiatric exam: Normal Affect, Normal Mood - Skin Skin Exam: Normal Color Assessment and Plan - Assessment and Plan (Free Text) Assessment: Ms. Vega is a 47 year old Female with a PMHx of congenital mitral valve regurgitation, fibroids, endometriosis, PCOS, and Fe deficiency anemia who was admitted for 3 days of subjective fevers and BRBPR. Plan: Painful Bleeding 2/2 external hemmorhoids vs poor gynecologic hygiene vs proctatitis vs rectal abscess vs endometriosis - Rectal exam performed without occult blood or fluctuance, external and internal hemmorhoids appreciated - pt reports resolution of blood per rectum, denies rectal pain - denies family h/o colon cancer - TVUS: R adnexal hemmorhagic corpus luteum vs endometrioma unchanged since . Uterine leiomyoma not substantially changed - CT abd and Pelvis: Large complex R adnexal cyst with heterogenous fibroid uterus. ? left adnexal cyst vs serosal suface. Appendix not seen clearly. Scattered colonic diverticula in descending colon without evidence of acute diverticulitis. - H/H 05/14: 11.7/34.9 - advance diet as per sx - continue Rocephin 1 and doxy 100 BID - f/u blood cx - ID consulted (Dr. Olson) - recommendations appreciated - Surgery consulted (Dr. Valderrama) - advance diet, sitz baths and stool softeners. no surgical intervention at this time - OB consulted (Dr. Tate) - to evaluate tomorrow Dysuria - UA: Positive for trace protein, blood and leukocyte esterase - UCx: final no growth - continue Rocephin 1 and doxy 100 BID - f/u chlamydia/gonorrhea/HIV Chronic constipation - colace 100 BID - continue to monitor GI/DVT PPx: SCD's Protonix 40 IVP Patient seen, case reviewed, and plan discussed with Dr. Bing Valderrama <Bing Valderrama - Last Filed: 05/15/18 07:36> Objective - Vital Signs/Intake and Output Vital Signs (last 24 hours): Temp Pulse Resp BP Pulse Ox 98.2 F 74 18 100/62 97 05/15/18 06:00 05/15/18 06:00 05/15/18 06:00 05/15/18 06:00 05/15/18 06:00 Intake and Output: 05/15/18 05/15/18 06:59 18:59 Intake Total 2760 Balance 2760 - Medications Medications: Current Medications Docusate Sodium (Colace) 100 mg PO BID [facility] Last Admin: 05/14/18 17:57 Dose: 100 mg Doxycycline Hyclate (Doryx) 100 mg PO Q12 [facility] PRN Reason: Protocol Last Admin: 05/14/18 21:55 Dose: 100 mg Sodium Chloride (Sodium Chloride 0.9%) 1,000 mls @ 100 mls/hr IV .Q10H [facility] Last Admin: 05/15/18 05:30 Dose: 100 mls/hr Ceftriaxone Sodium (Rocephin 1 Gram Ivpb) 1 gm in 100 mls @ 100 mls/hr IVPB DAILY [facility] PRN Reason: Protocol Last Admin: 05/14/18 10:36 Dose: 100 mls/hr Metronidazole (Flagyl) 500 mg in 100 mls @ 100 mls/hr IVPB Q8 [facility] PRN Reason: Protocol Last Admin: 05/15/18 05:30 Dose: 100 mls/hr Miconazole Nitrate [ Monistat 3] (Home Med) 1 each VG ONCE [facility] Last Admin: 05/14/18 10:38 Dose: Not Given Pantoprazole Sodium (Protonix Ec Tab) 40 mg PO 0600 [facility] Last Admin: 05/15/18 06:23 Dose: 40 mg - Labs Labs: 05/15/18 06:20 05/14/18 06:15 Attending/Attestation - Attestation I have personally seen and examined this patient.: Yes I have fully participated in the care of the patient.: Yes I have reviewed all pertinent clinical information, including history, physical exam and plan: Yes Notes (Text): Patient seen and examined by me at 11:15AM with resident 05/14/18. Case including HPI, physical exam, and assessment and plan discussed with resident. Agree with above with following additions/corrections. Patient is a 47-year-old female past medical history significant for unspecified congenital mitral valve regurgitation, fibroids, endometriosis, PCOS , and iron deficiency anemia who presented to emergency room with 3 days of subjective fevers and rectal pain. Patient states that she is feeling better today. States she had some bright red blood from the rectum the day prior. She states she has hemorrhoids and constipation and this happens when she is constipated. She states she takes prune juice at home which helps relieve constipation. She also complains of burning and pain with urination which has improved. Patient also complains of vaginal itching with no discharge which has also improved. No abdominal pain, nausea, or vomiting. No chest pain or shortness of breath. No fevers or chills. No headaches or dizziness. Physical exam: Gen: Awake and alert sitting up in bed in no acute distress HEENT: Normocephalic, atraumatic. Extraocular muscles intact, pupils equal reactive. No scleral icterus. Oropharynx is pink and moist. No pharyngeal erythema or exudate appreciated. Neck is supple. Cardiovascular: Normal rhythm. Normal S1, S2. No murmurs, rubs, or gallops appreciated Pulmonary: Normal respiratory effort. No rhonchi, rales or wheezing appreciated. Gastrointestinal: Soft, nontender, nondistended, positive bowel sounds all 4 quadrants, no guarding. Musculoskeletal: Normal range of motion all extremities, no calf tenderness. No CVA tenderness. Central nervous system: AAO x 3. Dermatologic: Skin warm and dry Assessment and plan: Patient is a 47-year-old female past medical history significant for unspecified congenital mitral valve regurgitation, fibroids, endometriosis, PCOS, and iron deficiency anemia who presented to emergency room with 3 days of subjective fevers and rectal pain. 1. Rectal bleeding. Likely secondary to internal and external hemorrhoids. Bleeding resolved for now. Patient seen by surgical team. No surgical intervention recommended. Continue with stool softener. Patient advised to use prune juice daily for constipation at home. Patient also advised to follow up outpatient with a GI doctor for long history of constipation 2. Dysuria and vaginal itching. Continue Monistat. Continue with Rocephin and Doxy. ID consulted, follow-up recommendations. Urine culture pending. Pending results for chlamydia/gonorrhea/HIV. 3. Fever. Likely secondary to #2. Resolved. ID following, recommendations appreciated. Pending blood and urine cultures 4. Complex right adnexal cyst. CT abdomen and pelvis per radiologist showed a large complex appearing right adnexal cyst, heterogeneous fibroid uterus, questionable small left adnexal cyst versus exophytic/serosal surface left fundal fibroid; the appendix is not seen with complete certainty however no obvious inflammatory changes right lower quadrant of the abdomen to suggest acute appendicitis; few scattered colonic diverticula seen along the ascending colon however no radiographic evidence of acute diverticulitis. Transvaginal ultrasound radiologist showed persistent complex cyst right adnexa which is decreased in size compared to prior study, stable uterus and solitary uterine fibroid. Patient states that she is aware of her cyst and that she is following up outpatient with summer n[facility] Dr. Renee. 5. Anemia. May be secondary to rectal bleeding versus dilutional effect from IV fluids. We'll monitor H&H for now. No more bleeding. 6. Chronic constipation. Continue Colace. Patient advised to use prune juice daily for constipation at home. Patient also advised to follow up outpatient with a GI doctor for long history of constipation Case was discussed in detail with the patient regarding current diagnosis and treatment plan.
--- NOTE | 2018-05-14 10:08 | US ---
Date of service: 05/13/2018 HISTORY: Pelvic pain. Menstrual status: Postmenopausal. COMPARISON: 03/20/2018 TECHNIQUE: Transabdominal only. Real-time technique with 2D, duplex and color Doppler Patient experienced sufficient pain and to not be able to tolerate the transvaginal ultrasound. FINDINGS: UTERUS: Measures 4.8 x 5.5 x 9.1 cm. Normal in size and appearance. Location of fibroid and size: Posterior 2.5 x 3.6 x 2.5 Cm ENDOMETRIUM: Measures 10.3 mm in diameter. Unremarkable. CERVIX: No cervical abnormality identified. RIGHT OVARY: Measures 4.6 x 5.6 x 6 cm. Complex cyst identified likely debris laden or hemorrhagic 3.2 x 6 cm. Normal flow. LEFT OVARY: Measures 1 x 2.2 x 2.7 cm. No solid mass. Normal flow. Simple cyst 0.8 x 1.3 cm FREE FLUID: No significant free fluid noted. OTHER FINDINGS: None. IMPRESSION: Persistent complex cyst right adnexa which is decreased in size compared to the prior study. On the prior study this measured 4.2 x 4.7 x 6.2 cm. Stable uterus, and solitary uterine fibroid. Concordant findings (preliminary report) provided by Qing.
[2018-05-14] MEDS: cefTRIAXone 1 gm 1 GM/100 ML BAG IVPB SCH (10:36)
[2018-05-14] MEDS: metroNIDAZOLE IV 500 mg/100 ml 500 MG/100 ML BAG IVPB SCH ×2 (13:07→21:56)
--- NOTE | 2018-05-14 16:06 | CP.PCM.CON ---
History of Present Illness - History of Present Illness History of Present Illness: 47 year old female with PMH of mitral valve regurgitation, uterine fibroids, endometriosis, polycystic ovarian syndrome, iron deficiency anemia came in to [facility] complaining of fever and lower abdominal pain for the past 3 days. She states that she also vaginal pruritus and discharge and she started taking Monistat which seems to have improved those symptoms. She denies diarrhea and in fact has chronic constipation and denies melena or hematochezia. She denies headache or dizziness, no chest pain, no SOB, no headache or dizziness, no cough or rhinorrhea, no sore throat, no hematuria, no dysphagia. In the ED, she was noted to have a fever of 103 F. Infectious Diseases consult is requested to further evaluate and manage. Review of Systems - Review of Systems All systems: reviewed and no additional remarkable complaints except (as per HPI ) Past Patient History - Infectious Disease Hx of Infectious Diseases: None - Past Social History Smoking Status: Never Smoked - CARDIAC Hx Cardiac Disorders: Yes Other/Comment: Congenital valve regurgitation - PULMONARY Hx Respiratory Disorders: No - NEUROLOGICAL Hx Neurological Disorder: Yes Hx Vertigo: Yes - HEENT Hx HEENT Problems: No - RENAL Hx Chronic Kidney Disease: No - ENDOCRINE/METABOLIC Hx Endocrine Disorders: No - HEMATOLOGICAL/ONCOLOGICAL Hx Blood Disorders: No - INTEGUMENTARY Hx Dermatological Problems: No - MUSCULOSKELETAL/RHEUMATOLOGICAL Hx Musculoskeletal Disorders: No - GASTROINTESTINAL Hx Gastrointestinal Disorders: No Hx Constipation: Yes - GENITOURINARY/GYNECOLOGICAL Hx Genitourinary Disorders: No Other/Comment: Endometriosis and PCOS - PSYCHIATRIC Hx Psychophysiologic Disorder: No Hx Substance Use: No - SURGICAL HISTORY Hx Surgeries: No - ANESTHESIA Hx Anesthesia: No Meds Allergies/Adverse Reactions: Allergies Allergy/AdvReac Type Severity Reaction Status Date / Time No Known Allergies Allergy Verified 03/20/18 19:19 - Medications Medications: Current Medications Docusate Sodium (Colace) 100 mg PO BID [facility] Doxycycline Hyclate (Doryx) 100 mg PO Q12 [facility] PRN Reason: Protocol Last Admin: 05/13/18 21:29 Dose: 100 mg Sodium Chloride (Sodium Chloride 0.9%) 1,000 mls @ 100 mls/hr IV .Q10H [facility] Last Admin: 05/14/18 06:37 Dose: 100 mls/hr Ceftriaxone Sodium (Rocephin 1 Gram Ivpb) 1 gm in 100 mls @ 100 mls/hr IVPB DAILY [facility] PRN Reason: Protocol Non-Formulary Medication (Miconazole Nitrate [Monistat 3]) 1 each VG ONCE [facility] Pantoprazole Sodium (Protonix Inj) 40 mg IVP DAILY [facility] Physical Exam - Constitutional Appears: Non-toxic, No Acute Distress - Head Exam Head Exam: NORMAL INSPECTION - ENT Exam ENT Exam: Mucous Membranes Moist - Neck Exam Neck exam: Negative for: Meningismus - Respiratory Exam Respiratory Exam: absent: Rales, Rhonchi - Cardiovascular Exam Cardiovascular Exam: +S1, +S2 - GI/Abdominal Exam GI & Abdominal Exam: Soft. absent: Tenderness Results - Vital Signs Recent Vital Signs: Last Vital Signs Temp 98.8 F 05/13/18 21:30 Pulse 85 05/13/18 21:30 Resp 18 05/13/18 21:30 BP 108/63 05/13/18 22:00 Pulse Ox 95 05/13/18 21:30 - Labs Result Diagrams: 05/14/18 06:15 05/14/18 06:15 Assessment & Plan - Assessment and Plan (Free Text) Plan: Assessment Systemic inflammatory response syndrome, R/O sepsis from UTI, R/O PID in this patient with vaginal discharge mitral valve regurgitation uterine fibroids endometriosis polycystic ovarian syndrome iron deficiency anemia Plan Started Rocephin, Flagyl and Doxycycline and will give a dose of PO Diflucan will monitor clinical response follow up urine cx, blood cx, urine GC, RPR, HIV test
[2018-05-14 22:05] VITALS: RESP 18
[2018-05-14] MEDS ORDERED: Alum-Mag Hydrox-Simethicone Susp (30 mL) PO ONE (23:56)
[2018-05-15] MEDS: metroNIDAZOLE IV 500 mg/100 ml 500 MG/100 ML BAG IVPB SCH ×2 (05:30→13:41)
[2018-05-15] MEDS: Sodium Chloride 0.9% 1,000 ML IV SCH (05:30)
[2018-05-15] MEDS ORDERED: Pantoprazole 40 mg EC Tab PO SCH (06:15)
[2018-05-15 06:55] LABS: BASO # 0.04 K/mm3 (0.0-2.0); BASO % 0.9 % (0.0-3.0); EOS # 0.3 (0.0-0.7); EOS % 6.2 % (1.5-5.0); GRAN # 1.93 (1.4-6.5); GRAN % 42.9 % (50.0-68.0); HEMOGLOBIN 11.1 g/dL (12.0-16.0); LYMPH # 1.7 (1.2-3.4); LYMPH % 38.4 % (22.0-35.0); MEAN CELL VOLUME 86.6 fl (80.0-105.0); MEAN CORPUSCULAR HEMOGLOBIN 29.1 pg (25.0-35.0); MEAN CORPUSCULAR HGB CONC 33.6 g/dl (31.0-37.0); MEAN PLATELET VOLUME 9.4 fl (7.0-11.0); MONO # 0.5 (0.1-0.6); MONO % 11.6 % (1.0-6.0); RBC 3.81 10^6/uL (3.5-6.1); RED CELL DISTRIBUTION WIDTH 13.3 % (11.5-14.5); WHITE BLOOD COUNT 4.5 10^3/ul (4.5-11.0)
[2018-05-15 07:16] VITALS: O2SAT 97
[2018-05-15 07:21] LABS: ALB/GLOB RATIO 1.2 (1.1-1.8); ALBUMIN 3.5 g/dL (3.0-4.8); ALT/SGPT 26 U/L (7-56); AST/SGOT 21 U/L (14-36); BLOOD UREA NITROGEN 10 mg/dL (7-21); CALCIUM 8.4 mg/dL (8.4-10.5); GFR AFRICAN-AMERICAN > 60; GFR NON-AFRICAN AMERICAN > 60
--- NOTE | 2018-05-15 07:50 | CP.PCM.PN ---
Objective - Vital Signs/Intake and Output Vital Signs (last 24 hours): Temp Pulse Resp BP Pulse Ox 98.2 F 74 18 100/62 97 05/15/18 06:00 05/15/18 06:00 05/15/18 06:00 05/15/18 06:00 05/15/18 06:00 Intake and Output: 05/15/18 05/15/18 06:59 18:59 Intake Total 2760 Balance 2760 - Medications Medications: Current Medications Docusate Sodium (Colace) 100 mg PO BID [facility] Last Admin: 05/14/18 17:57 Dose: 100 mg Doxycycline Hyclate (Doryx) 100 mg PO Q12 [facility] PRN Reason: Protocol Last Admin: 05/14/18 21:55 Dose: 100 mg Sodium Chloride (Sodium Chloride 0.9%) 1,000 mls @ 100 mls/hr IV .Q10H [facility] Last Admin: 05/15/18 05:30 Dose: 100 mls/hr Ceftriaxone Sodium (Rocephin 1 Gram Ivpb) 1 gm in 100 mls @ 100 mls/hr IVPB DAILY [facility] PRN Reason: Protocol Last Admin: 05/14/18 10:36 Dose: 100 mls/hr Metronidazole (Flagyl) 500 mg in 100 mls @ 100 mls/hr IVPB Q8 [facility] PRN Reason: Protocol Last Admin: 05/15/18 05:30 Dose: 100 mls/hr Miconazole Nitrate [ Monistat 3] (Home Med) 1 each VG ONCE [facility] Last Admin: 05/14/18 10:38 Dose: Not Given Pantoprazole Sodium (Protonix Ec Tab) 40 mg PO 0600 [facility] Last Admin: 05/15/18 06:23 Dose: 40 mg - Labs Labs: 05/15/18 06:20 05/15/18 06:20
[2018-05-15] MEDS: cefTRIAXone 1 gm 1 GM/100 ML BAG IVPB SCH (09:33)
[2018-05-15 14:09] VITALS: BP 107/65; PULSE 73; TEMP 97.8
--- NOTE | 2018-05-15 15:13 | CP.PCM.DIS ---
<Lexy Amato - Last Filed: 05/15/18 15:10> Provider - Provider Date of Admission: 05/13/18 20:00 Attending physician: Bing Valderrama DO Primary care physician: NO PRIMARY CARE PROVIDER Consults: ID Surgery CELL PHONE REPAIR TECHNICIAN Time Spent in preparation of Discharge (in minutes): 70 Hospital Course - Lab Results Lab Results: Most Recent Lab Values WBC 4.5 10^3/ul (4.5-11.0) 05/15/18 06:20 RBC 3.81 10^6/uL (3.5-6.1) 05/15/18 06:20 Hgb 11.1 g/dL (12.0-16.0) L 05/15/18 06:20 Hct 33.0 % (36.0-48.0) L 05/15/18 06:20 MCV 86.6 fl (80.0-105.0) 05/15/18 06:20 MCH 29.1 pg (25.0-35.0) 05/15/18 06:20 MCHC 33.6 g/dl (31.0-37.0) 05/15/18 06:20 RDW 13.3 % (11.5-14.5) 05/15/18 06:20 Plt Count 219 10^3/uL (120.0-450.0) 05/15/18 06:20 MPV 9.4 fl (7.0-11.0) 05/15/18 06:20 Gran % 42.9 % (50.0-68.0) L 05/15/18 06:20 Lymph % (Auto) 38.4 % (22.0-35.0) H 05/15/18 06:20 Dickson % (Auto) 11.6 % (1.0-6.0) H 05/15/18 06:20 Eos % (Auto) 6.2 % (1.5-5.0) H 05/15/18 06:20 Baso % (Auto) 0.9 % (0.0-3.0) 05/15/18 06:20 Gran # 1.93 (1.4-6.5) 05/15/18 06:20 Lymph # (Auto) 1.7 (1.2-3.4) 05/15/18 06:20 Dickson # (Auto) 0.5 (0.1-0.6) 05/15/18 06:20 Eos # (Auto) 0.3 (0.0-0.7) 05/15/18 06:20 Baso # (Auto) 0.04 K/mm3 (0.0-2.0) 05/15/18 06:20 pO2 26 mm/Hg (30-55) L 05/13/18 15:10 VBG pH 7.38 (7.32-7.43) 05/13/18 15:10 VBG pCO2 47.0 (40-60) 05/13/18 15:10 VBG HCO3 27.8 mmol/l (21-28) 05/13/18 15:10 VBG Total CO2 29.2 mmol.L (22-28) H 05/13/18 15:10 VBG O2 Sat (Calc) 52.6 % (40-65) 05/13/18 15:10 VBG Base Excess 2.0 mmol/L (0.0-2.0) 05/13/18 15:10 VBG Potassium 4.1 mmol/L (3.6-5.2) 05/13/18 15:10 Sodium 138.0 mmol/L (132-148) 05/13/18 15:10 Chloride 103.0 mmol/L (98-107) 05/13/18 15:10 Glucose 124 mg/dl (65-105) H 05/13/18 15:10 Lactate 1.1 mmol/L (0.7-2.1) 05/13/18 15:10 FiO2 21.0 % 05/13/18 15:10 Sodium 143 mmol/L (132-148) 05/15/18 06:20 Potassium 3.7 mmol/L (3.6-5.0) 05/15/18 06:20 Chloride 107 mmol/L (98-107) 05/15/18 06:20 Carbon Dioxide 26 mmol/L (21-33) 05/15/18 06:20 Anion Gap 14 (10-20) 05/15/18 06:20 BUN 10 mg/dL (7-21) 05/15/18 06:20 Creatinine 0.7 mg/dl (0.7-1.2) 05/15/18 06:20 Est GFR ( Amer) > 60 05/15/18 06:20 Est GFR (Non-Af Amer) > 60 05/15/18 06:20 Random Glucose 101 mg/dL (70-110) 05/15/18 06:20 Calcium 8.4 mg/dL (8.4-10.5) 05/15/18 06:20 Total Bilirubin 0.1 mg/dL (0.2-1.3) L 05/15/18 06:20 AST 21 U/L (14-36) 05/15/18 06:20 ALT 26 U/L (7-56) 05/15/18 06:20 Alkaline Phosphatase 47 U/L (38-126) 05/15/18 06:20 Total Protein 6.6 g/dL (5.8-8.3) 05/15/18 06:20 Albumin 3.5 g/dL (3.0-4.8) 05/15/18 06:20 Globulin 3.1 gm/dL 05/15/18 06:20 Albumin/Globulin Ratio 1.2 (1.1-1.8) 05/15/18 06:20 Lipase 33 U/L (23-300) 05/13/18 15:10 Venous Blood Potassium 4.1 mmol/L (3.6-5.2) 05/13/18 15:10 Urine Color Light yellow (YELLOW) 05/13/18 14:38 Urine Appearance Clear (CLEAR) 05/13/18 14:38 Urine pH 6.0 (4.7-8.0) 05/13/18 14:38 Ur Specific [place] 1.020 (1.005-1.035) 05/13/18 14:38 Urine Protein Trace mg/dL (<30 mg/dL) H 05/13/18 14:38 Urine Glucose (UA) Negative mg/dL (NEGATIVE) 05/13/18 14:38 Urine Ketones Negative mg/dL (NEGATIVE) 05/13/18 14:38 Urine Blood Trace-intact (NEGATIVE) H 05/13/18 14:38 Urine Nitrate Negative (NEGATIVE) 05/13/18 14:38 Urine Bilirubin Negative (NEGATIVE) 05/13/18 14:38 Urine Urobilinogen 0.2 E.U./dL (<1 E.U./dL) 05/13/18 14:38 Ur Leukocyte Esterase Trace Cristian/uL (NEGATIVE) H 05/13/18 14:38 Urine RBC 0 - 2 /hpf (0-2) 05/13/18 14:38 Urine WBC 0 - 2 /hpf (0-6) 05/13/18 14:38 Ur Epithelial Cells 0 - 2 /hpf (0-5) 05/13/18 14:38 Urine Bacteria Small (NEG) 05/13/18 14:38 HIV 1&2 Ag/Ab, 4th Gen Nonreactive (Nonreactive) 05/14/18 05:00 - Hospital Course Hospital Course: Ms. Vega is a 47 year old F with a PMHx of unspecified congenital mitral valve regurgitation, fibroids, endometriosis, PCOS, and Fe deficiency anemia who was admitted for 3 days of subjective fevers and abdominal pain. Patient reported subjective warmth, chills, weakness, headaches and diaphoresis. Patient reports chronic constipation, and requires a laxative and prune juice to have a bowel movement. Patient had an episode of flatus that patient reported as painful and had about 2 ounces of bright red blood per rectum. Since then, patient reports rectal pain but no further episodes of hematochezia. Patient is sexually active and monogamous with .Patient recently had a yeast infection and began a trial of Monistat 3 days ago. Patient reported persistent pain on urination for 3 days, although pain is not as severe. Patient denies chest pain, palpitations, shortness of breath, dizziness, cough, diarrhea, leg pain, leg swelling, easy bruising, recent travel, sick contacts and changes in weight. In the ED, UA was positive for small leukocyte esterase, trace protein. On physical exam, external and internal hemorrhoids were appreciated. Pt was given cipro, flagyl, and rocephin. She was admitted for painful rectal bleeding. CT abd/pelvis showed a large complex right adnexal cyst with a heterogeneous fibroid uterus. Scattered colonic diverticula were seen in the descenign colon without inflammation. Transvaginal US showed a right adnexal hemmorhagic corpus luteum vs. endometrioma unchanged from 03/19. Upon admission, pt denied recurrence of rectal bleeding. She reported persistence of her dysuria and pyuria. She denied any abdominal pain. ID was consulted and recommended one dose of diflucan as well as rocephin, flagyl, and doxycyline. Surgery was consulted and recommended medical managment with sitz baths and stool softeners. CELL PHONE REPAIR TECHNICIAN was consulted and recommended outpatient follow up if no emergent issue. UCx showed no growth BCx was preliminarily negative The following day, the pt reported improvement of the dysuria and pyuria. Patient was given instructions on following up with primary care and gynecology as well as newly prescribed medications upon discharge. Discharge Exam - Head Exam Head Exam: ATRAUMATIC, NORMAL INSPECTION, NORMOCEPHALIC - Eye Exam Eye Exam: Normal appearance - ENT Exam ENT Exam: Mucous Membranes Moist - Respiratory Exam Respiratory Exam: Clear to PA & Lateral, NORMAL BREATHING PATTERN - Cardiovascular Exam Cardiovascular Exam: REGULAR RHYTHM, +S1, +S2 - GI/Abdominal Exam GI & Abdominal Exam: Normal Bowel Sounds, Soft. absent: Tenderness - Extremities Exam Extremities exam: normal inspection - Neurological Exam Neurological exam: Alert, Oriented x3 - Psychiatric Exam Psychiatric exam: Normal Affect, Normal Mood - Skin Skin Exam: Normal Color Discharge Plan - Discharge Medications Prescriptions: Cefpodoxime [Vantin] 200 mg PO BID 5 Days #10 tab Doxycycline Hyclate [Doryx] 100 mg PO Q12 5 Days cap Lactobacillus Combination No.9 [Adult 50 + Probiotic] 1 each PO BID #28 capsule Metronidazole [Flagyl] 500 mg PO BID 5 Days #10 tablet Pantoprazole [Protonix EC Tab] 40 mg PO 0600 5 Days ect - Follow Up Plan Condition: FAIR Disposition: HOME/ ROUTINE Instructions: Ovarian Cysts, Acute Abdomen (Belly Pain), Adult (DC), Pneumococcal Polysaccharide Vaccine (23-Valent) Additional Instructions: Please follow up with primary care at [facility] on , 05/24/18 at 2pm. Please follow up with your social worker, Dr. Renee, within 7 days for continued follow up on your ovarian complex cyst. Please take the following medications prescribed to you: Cefpodoxime twice a day for 5 days Doxycycline twice a day for 5 days Flagyl every 8 hours for 5 days Lactobacillus twice a day for 14 days Pantoprazole daily for 14 days. If symptoms return, please visit the emergency department. Referrals: Magan Renee MD [Staff Provider] - <Bing Valderrama - Last Filed: 05/16/18 16:39> Provider - Provider Date of Admission: 05/13/18 20:00 Attending physician: Bing Valderrama DO Primary care physician: NO PRIMARY CARE PROVIDER Hospital Course - Lab Results Lab Results: Most Recent Lab Values WBC 4.5 10^3/ul (4.5-11.0) 05/15/18 06:20 RBC 3.81 10^6/uL (3.5-6.1) 05/15/18 06:20 Hgb 11.1 g/dL (12.0-16.0) L 05/15/18 06:20 Hct 33.0 % (36.0-48.0) L 05/15/18 06:20 MCV 86.6 fl (80.0-105.0) 05/15/18 06:20 MCH 29.1 pg (25.0-35.0) 05/15/18 06:20 MCHC 33.6 g/dl (31.0-37.0) 05/15/18 06:20 RDW 13.3 % (11.5-14.5) 05/15/18 06:20 Plt Count 219 10^3/uL (120.0-450.0) 05/15/18 06:20 MPV 9.4 fl (7.0-11.0) 05/15/18 06:20 Gran % 42.9 % (50.0-68.0) L 05/15/18 06:20 Lymph % (Auto) 38.4 % (22.0-35.0) H 05/15/18 06:20 Dickson % (Auto) 11.6 % (1.0-6.0) H 05/15/18 06:20 Eos % (Auto) 6.2 % (1.5-5.0) H 05/15/18 06:20 Baso % (Auto) 0.9 % (0.0-3.0) 05/15/18 06:20 Gran # 1.93 (1.4-6.5) 05/15/18 06:20 Lymph # (Auto) 1.7 (1.2-3.4) 05/15/18 06:20 Dickson # (Auto) 0.5 (0.1-0.6) 05/15/18 06:20 Eos # (Auto) 0.3 (0.0-0.7) 05/15/18 06:20 Baso # (Auto) 0.04 K/mm3 (0.0-2.0) 05/15/18 06:20 pO2 26 mm/Hg (30-55) L 05/13/18 15:10 VBG pH 7.38 (7.32-7.43) 05/13/18 15:10 VBG pCO2 47.0 (40-60) 05/13/18 15:10 VBG HCO3 27.8 mmol/l (21-28) 05/13/18 15:10 VBG Total CO2 29.2 mmol.L (22-28) H 05/13/18 15:10 VBG O2 Sat (Calc) 52.6 % (40-65) 05/13/18 15:10 VBG Base Excess 2.0 mmol/L (0.0-2.0) 05/13/18 15:10 VBG Potassium 4.1 mmol/L (3.6-5.2) 05/13/18 15:10 Sodium 138.0 mmol/L (132-148) 05/13/18 15:10 Chloride 103.0 mmol/L (98-107) 05/13/18 15:10 Glucose 124 mg/dl (65-105) H 05/13/18 15:10 Lactate 1.1 mmol/L (0.7-2.1) 05/13/18 15:10 FiO2 21.0 % 05/13/18 15:10 Sodium 143 mmol/L (132-148) 05/15/18 06:20 Potassium 3.7 mmol/L (3.6-5.0) 05/15/18 06:20 Chloride 107 mmol/L (98-107) 05/15/18 06:20 Carbon Dioxide 26 mmol/L (21-33) 05/15/18 06:20 Anion Gap 14 (10-20) 05/15/18 06:20 BUN 10 mg/dL (7-21) 05/15/18 06:20 Creatinine 0.7 mg/dl (0.7-1.2) 05/15/18 06:20 Est GFR ( Amer) > 60 05/15/18 06:20 Est GFR (Non-Af Amer) > 60 05/15/18 06:20 Random Glucose 101 mg/dL (70-110) 05/15/18 06:20 Calcium 8.4 mg/dL (8.4-10.5) 05/15/18 06:20 Total Bilirubin 0.1 mg/dL (0.2-1.3) L 05/15/18 06:20 AST 21 U/L (14-36) 05/15/18 06:20 ALT 26 U/L (7-56) 05/15/18 06:20 Alkaline Phosphatase 47 U/L (38-126) 05/15/18 06:20 Total Protein 6.6 g/dL (5.8-8.3) 05/15/18 06:20 Albumin 3.5 g/dL (3.0-4.8) 05/15/18 06:20 Globulin 3.1 gm/dL 05/15/18 06:20 Albumin/Globulin Ratio 1.2 (1.1-1.8) 05/15/18 06:20 Lipase 33 U/L (23-300) 05/13/18 15:10 Venous Blood Potassium 4.1 mmol/L (3.6-5.2) 05/13/18 15:10 Urine Color Light yellow (YELLOW) 05/13/18 14:38 Urine Appearance Clear (CLEAR) 05/13/18 14:38 Urine pH 6.0 (4.7-8.0) 05/13/18 14:38 Ur Specific [place] 1.020 (1.005-1.035) 05/13/18 14:38 Urine Protein Trace mg/dL (<30 mg/dL) H 05/13/18 14:38 Urine Glucose (UA) Negative mg/dL (NEGATIVE) 05/13/18 14:38 Urine Ketones Negative mg/dL (NEGATIVE) 05/13/18 14:38 Urine Blood Trace-intact (NEGATIVE) H 05/13/18 14:38 Urine Nitrate Negative (NEGATIVE) 05/13/18 14:38 Urine Bilirubin Negative (NEGATIVE) 05/13/18 14:38 Urine Urobilinogen 0.2 E.U./dL (<1 E.U./dL) 05/13/18 14:38 Ur Leukocyte Esterase Trace Cristian/uL (NEGATIVE) H 05/13/18 14:38 Urine RBC 0 - 2 /hpf (0-2) 05/13/18 14:38 Urine WBC 0 - 2 /hpf (0-6) 05/13/18 14:38 Ur Epithelial Cells 0 - 2 /hpf (0-5) 05/13/18 14:38 Urine Bacteria Small (NEG) 05/13/18 14:38 HIV 1&2 Ag/Ab, 4th Gen Nonreactive (Nonreactive) 05/14/18 05:00 Attending/Attestation - Attestation I have personally seen and examined this patient.: Yes I have fully participated in the care of the patient.: Yes I have reviewed all pertinent clinical information, including history, physical exam and plan: Yes Notes (Text): Patient seen and examined by me with resident at 11:50PM 05/15/18. Case including discharge plan discussed with resident. Agree with above with following additions/corrections. Patient is a 47-year-old female past medical history significant for unspecified congenital mitral valve regurgitation, fibroids, endometriosis, PCOS , and iron deficiency anemia who presented to emergency room with 3 days of subjective fevers and rectal pain. Patient was admitted with painful bleeding secondary to internal and external hemorrhoids and fever. Surgery was consulted. ID was consulted. Rectal bleeding resolved. She was seen by surgery no surgical intervention was recommended. Patient was continued on stool softener. Patient was advised to continue over- the-counter stool softener as well as per juice at home for constipation. Patient was also advised to follow-up with a semaphore operator as an outpatient for history of constipation. Patient also complained of dysuria and vaginal itching. She was seen by infectious disease doctor. Patient was started on Rocephin and doxycycline. She was also given Diflucan. Urine culture was negative. Patient was given prescription for by mouth Vantin, doxycycline, and Flagyl for 5 days as per infectious disease doctor. HIV test was nonreactive. Per infectious disease doctor. Urine gonorrhea/chlamydia and RPR can be followed up outpatient. Patient was also found to have complex right adnexal cyst. CT abdomen and pelvis per radiologist showed a large complex appearing right adnexal cyst, heterogeneous fibroid uterus, questionable small left adnexal cyst versus exophytic/serosal surface left fundal fibroid; the appendix is not seen with complete certainty however no obvious inflammatory changes right lower quadrant of the abdomen to suggest acute appendicitis; few scattered colonic diverticula seen along the ascending colon however no radiographic evidence of acute diverticulitis. Transvaginal ultrasound radiologist showed persistent complex cyst right adnexa which is decreased in size compared to prior study, stable uterus and solitary uterine fibroid. Per patient, she has been following outpatient with her social worker, Dr. Renee, for this. Patient will need to follow up outpatient for anemia. Likely dilutional effect. She was asymptomatic and rectal bleeding. Rectal pain resolved. Dysuria and vaginal itching resolved. Patient remained afebrile. Patient was cleared for discharge by all consultants. Patient was discharged home. On day of discharged, patient stated she was feeling well. Dysuria resolved. Vaginal itching resolved. Patient denied any rectal pain or bleeding. No chest pain or shortness of breath. No nausea, vomiting, or abdominal pain. No fevers or chills. No headaches or dizziness. Physical exam: Gen: Awake and alert sitting up in bed in no acute distress HEENT: Normocephalic, atraumatic. Extraocular muscles intact, pupils equal reactive. No scleral icterus. Oropharynx is pink and moist. No pharyngeal erythema or exudate appreciated. Neck is supple. Cardiovascular: Normal rhythm. Normal S1, S2. No murmurs, rubs, or gallops appreciated Pulmonary: Normal respiratory effort. No rhonchi, rales or wheezing appreciated. Gastrointestinal: Soft, nontender, nondistended, positive bowel sounds all 4 quadrants, no guarding. Musculoskeletal: Normal range of motion all extremities, no calf tenderness. No CVA tenderness. Central nervous system: AAO x 3. Dermatologic: Skin warm and dry Please see chart for full details. Follow up instructions. Patient to follow up with [facility] on , 05/24/18 at 2pm. Patient to get referral for GI from here. Paitent to follow with social worker, Dr. Renee, within 7 days for continued follow up on ovarian complex cyst. Patient to take medications as prescribed. All instructions explained to patient in detail. Patient both understands and agrees to all instructions. Time spent in discharging the patient including chart review, medication reconciliation, discussion with the patient, nurses medical assistants phlebotomists, consultants, and nursing staff was approximately 40 minutes.
--- NOTE | 2018-05-15 16:38 | CP.PCM.PN ---
Subjective - Date & Time of Evaluation Date of Evaluation: 05/15/18 Time of Evaluation: 10:15 - Subjective Subjective: No fevers, not in distress, feels better, no more vaginal discharge or pain. Objective - Vital Signs/Intake and Output Vital Signs (last 24 hours): Temp Pulse Resp BP Pulse Ox 98.9 F 86 20 113/69 97 05/14/18 14:00 05/14/18 14:00 05/14/18 14:00 05/14/18 14:00 05/14/18 14:00 Intake and Output: 05/14/18 05/14/18 06:59 18:59 Intake Total 1000 620 Balance 1000 620 - Medications Medications: Current Medications Docusate Sodium (Colace) 100 mg PO BID [facility] Last Admin: 05/14/18 10:37 Dose: 100 mg Doxycycline Hyclate (Doryx) 100 mg PO Q12 [facility] PRN Reason: Protocol Last Admin: 05/14/18 10:37 Dose: 100 mg Sodium Chloride (Sodium Chloride 0.9%) 1,000 mls @ 100 mls/hr IV .Q10H [facility] Last Admin: 05/14/18 06:37 Dose: 100 mls/hr Ceftriaxone Sodium (Rocephin 1 Gram Ivpb) 1 gm in 100 mls @ 100 mls/hr IVPB DAILY [facility] PRN Reason: Protocol Last Admin: 05/14/18 10:36 Dose: 100 mls/hr Metronidazole (Flagyl) 500 mg in 100 mls @ 100 mls/hr IVPB Q8 [facility] PRN Reason: Protocol Last Admin: 05/14/18 13:07 Dose: 100 mls/hr Miconazole Nitrate [ Monistat 3] (Home Med) 1 each VG ONCE [facility] Last Admin: 05/14/18 10:38 Dose: Not Given Pantoprazole Sodium (Protonix Inj) 40 mg IVP DAILY [facility] Last Admin: 05/14/18 10:37 Dose: 40 mg - Labs Labs: 05/14/18 06:15 05/14/18 06:15 - Constitutional Appears: Non-toxic - Head Exam Head Exam: NORMAL INSPECTION - Neck Exam Neck Exam: absent: Meningismus - Respiratory Exam Respiratory Exam: Decreased Breath Sounds - Cardiovascular Exam Cardiovascular Exam: +S1, +S2 - GI/Abdominal Exam GI & Abdominal Exam: Soft. absent: Tenderness Assessment and Plan - Assessment and Plan (Free Text) Plan: Assessment Systemic inflammatory response syndrome, R/O PID in this patient with vaginal, clinically improving discharge mitral valve regurgitation uterine fibroids endometriosis polycystic ovarian syndrome iron deficiency anemia Plan on Rocephin, Flagyl and Doxycycline day 2 and given a dose of PO Diflucan - can switch to PO Vantin, Doxycycline and Flagyl for 5-7 days urine cx, blood cx are negative urine GC, RPR can be followed as outpatient by PMD HIV test is non-reactive
--- NOTE | 2018-05-15 19:27 | CON ---
Copied To: Aleksandr Tate MD Attending MD: Aleksandr Tate MD DATE: 05/15/2018 [facility] HISTORY OF PRESENT ILLNESS: This is a 47-year-old G1, P0-1-0-1 who is postmenopausal since about 40 years old, who was admitted for 3 days of subjective fevers and abdominal pain. She reported that she had a fever of 103 on the morning of admission, on 05/13/2018. Patient reports that she had bright red blood per rectum on the morning of her admission. She reports she has chronic constipation, requires laxatives and prune juice to have a bowel movement. Patient reports that she has had very bad yeast infection recently and was given Diflucan in the hospital, is on her day 6 of the 7 day Monistat course. Patient reports that she is feeling better. This gynecology consult was called because this patient has a persistent right complex ovarian cyst. This patient has received [employer] care with Dr. Renee. She reports that she is planning to follow up with him in July when she can go under her 's insurance. PAST MEDICAL HISTORY: Chronic constipation, unspecified mitral valve disorder that may have been diagnosed during her , history of fibroids, endometriosis, cystic ovaries and iron deficiency anemia. PAST SURGICAL HISTORY: Patient reports that she has only had a section in 2000 for male weighing 7 pounds 5 ounces at 8 months due to low lying placenta and patient reports that there was "scraping" involved with the infection. Denies any other surgeries. ALLERGIES: NO KNOWN DRUG ALLERGIES. SOCIAL HISTORY: She denies tobacco, alcohol or illicit drug use and The patient is currently taking care of her who has stage IV colon cancer. FAMILY HISTORY: Patient reports her mother has hypertension. Her father from lung cancer, who was a smoker. She has a paternal uncle who had liver cancer, another paternal uncle with lung cancer and paternal cousin with leukemia. GYNECOLOGY HISTORY: Menarche at 10, history of regular periods. She reports that her periods stopped when she is young around 40 years old. She reports that from 1997 to 1999, she was on danazol for ovarian cysts . She used to take that medication when she was in the [facility]. MEDS: Ceftriaxone 1 g daily, Colace, doxycycline 100 mg p.o. every 12 hours, Flagyl 500 IV every 8 hours. She is receiving Monistat. She states it is 7 day Monistat. She is also receiving pantoprazole. PHYSICAL EXAMINATION: GENERAL: Afebrile. Patient appears comfortable, sitting up in bed. VITAL SIGNS: Stable. NECK: No masses. HEART: Regular rate and rhythm. LUNGS: Clear to auscultation bilaterally. ABDOMEN: Soft, nontender. EXTREMITIES: Nontender, no edema. GENITOURINARY: Vaginal exam deferred per pt request. (Patient requested that vaginal exam not be done because she is still sore from her yeast infection.) LABORATORY DATA: Today, white count is normal at 4.5, hemoglobin is 11.1, platelets are 219. Blood cultures from 05/13/2018 are preliminarily no growth. The urine culture has no growth. Gonorrhea, Chlamydia, human immunodeficiency virus are pending. IMAGIN05/13/2018 Pelvic ultrasound reveals a persistent complex right ovarian cyst, likely debris laden or hemorrhagic 3.2 x 6 cm. Normal flow to the ovary. Patient has history of a persistent complex cyst in the right adnexa, which has decreased in size compared to the prior study. On the prior study, it measured 4.2 x 4.7 x 6.2 cm. Stable uterus and solitary uterine fibroid. The location of the fibroid and size is this posterior, 2.5 x 3.6 x 2.5 cm. Left ovary is normal. No mass. Normal flow and there is a simple cyst 0.8 x 1.3 cm. (Patient states she could not have the transvaginal scan done because she was in too much pain from her yeast infection.) ASSESSMENT AND PLAN: This is a 47-year-old G1, P0-1-0-1 who is postmenopausal since 40 years old who is admitted to the hospital for 3 days of subjective fevers and abdominal pain. She had a fever of 103 on the day of admission on 05/13/2018. This patient has a persistent complex right ovarian cyst, which appears to have decreased in size based on the transabdominal ultrasound done on 05/13/2018. Of note, Dr. Renee had done a [place] test on this patient on 04/13/2018 and the result was low risk for ovarian malignancy. Patient was advised to follow up with Dr. Renee for this persistent right complex ovarian cyst. Aleksandr Tate MD [facility] # [id number] [place]
== END 2018-05-15 17:38 | disposition home or self-care (01) ==
LOC: ED 13:56 → ERH 20:00 → 5RNO 21:13
PROVIDERS: ADMIT Internal Medicine; ATTEND Hospitalist
DX: K62.5 Hemorrhage of anus and rectum (principal); K64.8 Other hemorrhoids; K64.4 Residual hemorrhoidal skin tags; N39.0 Urinary tract infection, site not specified; D25.1 Intramural leiomyoma of uterus; D50.9 Iron deficiency anemia, unspecified; B37.3 Candidiasis of vulva and vagina; N83.201 Unspecified ovarian cyst, right side; N80.9 Endometriosis, unspecified; R30.0 Dysuria; E28.2 Polycystic ovarian syndrome; K57.30 Diverticulosis of large intestine without perforation or abscess without bleeding; K59.09 Other constipation; R50.9 Fever, unspecified; Q23.3 Congenital mitral insufficiency; Z80.6 Family history of leukemia; Z80.1 Family history of malignant neoplasm of trachea, bronchus and lung
CPT/HCPCS: 36415; 74177; 76830; 80053; 81001; 82803; 83690; 85025; 87040; 87086; 87389; 87491; 87591; 96361; 96365; 96366; 96367; 96375; 96376; 99285; C9113; G0378; J0696; J1885; J7030; J7040; Q9967

== ENCOUNTER 2018-12-26 12:35 | Outpatient (CLI) | payer MEDICAID | END 2018-12-26 12:36 | disposition home or self-care (01) | LOC: LAB 12:35 ==